=== PATIENT | female | born 1985 | race Two or more races ===

== ENCOUNTER 2018-12-15 16:07 | Emergency (ER) | payer MEDICAID, OTHER ==
[~2018-12-15] VITALS: Ht 172.7 cm; Wt 113.4 kg
[~2018-12-15 16:07] MED LIST: PREN-145 OR
[2018-12-15 16:20] VITALS: BP 136/82
== END 2018-12-15 21:45 | disposition left against medical advice (07) ==
LOC: ER 16:07
DX: O46.91 Antepartum hemorrhage, unspecified, first trimester (principal); Z3A.01 Less than 8 weeks gestation of pregnancy

== ENCOUNTER 2019-10-24 09:41 | Observation (INO) | payer MEDICAID, OTHER | END 2019-10-24 10:55 | disposition home or self-care (01) | LOC: OB 09:41 → LDRP 10:31 | PROVIDERS: ADMIT Obstetrics & Gynecology; ATTEND Obstetrics & Gynecology | DX: O48.0 Post-term pregnancy (principal); O09.523 Supervision of elderly multigravida, third trimester; Z3A.40 40 weeks gestation of pregnancy | CPT/HCPCS: 59025; 76818; 81002; G0378 ==

== ENCOUNTER 2019-10-26 10:50 | Observation (INO) | payer MEDICAID | END 2019-10-26 12:07 | disposition home or self-care (01) | LOC: LDRP 10:50 | PROVIDERS: ADMIT Specialist; ATTEND Specialist | DX: O48.0 Post-term pregnancy (principal); O41.03X0 Oligohydramnios, third trimester, not applicable or unspecified; Z3A.40 40 weeks gestation of pregnancy | CPT/HCPCS: 59025; 76818; 81002; G0378 ==

== ENCOUNTER 2019-10-28 11:15 | Observation (INO) | payer MEDICAID | END 2019-10-28 13:00 | disposition home or self-care (01) | LOC: LDRP 11:15 | PROVIDERS: ADMIT Obstetrics & Gynecology; ATTEND Obstetrics & Gynecology | DX: O48.0 Post-term pregnancy (principal); Z3A.40 40 weeks gestation of pregnancy | CPT/HCPCS: 59025; 76818; 81002; G0378 ==

== ENCOUNTER 2019-10-30 14:56 | Observation (INO) | payer MEDICAID ==
[~2019-10-30] VITALS: Ht 170.2 cm; Wt 131.5 kg
== END 2019-10-30 16:12 | disposition home or self-care (01) ==
LOC: LDRP 14:56
PROVIDERS: ADMIT Obstetrics & Gynecology; ATTEND Obstetrics & Gynecology
DX: O48.0 Post-term pregnancy (principal); Z3A.41 41 weeks gestation of pregnancy
CPT/HCPCS: 59025; 76818; 81002; G0378